=== PATIENT | male | born 1945 | race Caucasian/White ===

== ENCOUNTER → 2024-07-27 12:44 | Outpatient (CLI) | payer MEDICARE, SELFPAY ==
--- NOTE | 2024-07-27 12:47 | DI.MRI.S_ITS ---
PROCEDURE: MR HIP LT WO CON INDICATIONS: PSOAS TENDINITIS OF LEFT SIDE TECHNIQUE: Noncontrast coronal T1 spin echo and STIR through the bony pelvis. Coronal and axial T2 fast spin echo with fat saturation, sagittal T1 spin echo, and oblique axial T2 fast spin echo with fat saturation through the hip. COMPARISON: [facility], CR, XR PELVIS WITH LATERAL HIP LEFT, 06/14/2024, 15:05. FINDINGS: Image quality: Excellent. There is severe degenerative change involving the patient's left hip. Associated with this is marrow edema in the femoral head and adjacent acetabulum. This is felt to be osteoarthritic however cannot completely exclude infection and clinical correlation is recommended. There is a small left hip joint effusion present. 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 No significant trochanteric bursitis is identified. Marrow signal remaining visualized bones appears within normal limits. I do not see definite psoas tendinitis. There is some mild increased signal within the abductor musculature on the left which may represent an acute injury. Clinical correlation is recommended. There is enlarged prostate gland otherwise visualized pelvic organs appear within normal limits. Musculature appears symmetric. IMPRESSION: 1. 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 2. Small left hip joint effusion. 3. Imaging findings suggestive of a tear involving the superior hip labrum with a dissecting paralabral cyst noted adjacent to the superior labrum extending upward posterolaterally. 4. Mild increased signal within the adductor musculature on the right which may represent an acute injury. Clinical correlation is recommended. Dictated by: Radhames Zavala M.D. on 07/27/2024 at 15:49 Approved by: Radhames Zavala M.D. on 07/27/2024 at 16:01
== END ==
PROVIDERS: Referring Provider Orthopaedic Surgery; Visit Provider Orthopaedic Surgery
DX: M76.12 Psoas tendinitis, left hip (principal); M16.12 Unilateral primary osteoarthritis, left hip; M24.852 Other specific joint derangements of left hip, not elsewhere classified; M25.452 Effusion, left hip; N40.0 Benign prostatic hyperplasia without lower urinary tract symptoms
CPT/HCPCS: 73721